=== PATIENT | female | born 1940 | race Caucasian/White ===

== ENCOUNTER → 2023-11-29 12:37 | Outpatient (REF) | payer OTHER, SELFPAY | LOC: PET 12:37 | PROVIDERS: ATTENDING PHYSICIAN Internal Medicine Cardiovascular Disease | DX: R06.09 Other forms of dyspnea (principal) | CPT/HCPCS: 78431; A9555; J2785 ==

== ENCOUNTER → 2023-12-02 16:53 | Outpatient (REF) | payer OTHER, SELFPAY | LOC: UCDH 16:53 | PROVIDERS: ATTENDING PHYSICIAN Emergency Medicine; FAMILY PHYSICIAN Nurse Practitioner Family | DX: S99.912A Unspecified injury of left ankle, initial encounter (principal) | CPT/HCPCS: 73610; 73630 ==

== ENCOUNTER → 2023-12-13 12:11 | Outpatient (REF) | payer OTHER, SELFPAY | LOC: RAD 12:11 | PROVIDERS: ATTENDING PHYSICIAN Nurse Practitioner Family; FAMILY PHYSICIAN Nurse Practitioner Family | DX: R06.02 Shortness of breath (principal) | CPT/HCPCS: 71046 ==

== ENCOUNTER → 2023-12-15 08:06 | Outpatient (REF) | payer OTHER, SELFPAY | LOC: RCS 08:06 | PROVIDERS: ATTENDING PHYSICIAN Internal Medicine Cardiovascular Disease; FAMILY PHYSICIAN Nurse Practitioner Family | DX: R06.09 Other forms of dyspnea (principal) | CPT/HCPCS: 93306 ==